=== PATIENT | male | born 1965 | race Caucasian/White ===

== ENCOUNTER 2020-09-21 21:21 | Emergency (ER) | payer SELFPAY ==
[~2020-09-21] VITALS: Ht 172.7 cm; Wt 81.6 kg
[2020-09-21 21:24] VITALS: BP 165/110
--- NOTE | 2020-09-21 21:24 | NUR ---
PATIENT TAKEN TO ER BED 8
--- NOTE | 2020-09-21 21:30 | NUR ---
59 Y/O MALE BIBA FROM HOME C/O LEFT FOOT PAIN WITH CRAMPING X A FEW MONTHS. PT STATES FRIENDS CALLED EMS BECAUSE THEY THOUGHT PT WAS SEIZING. PT DENIES ANY SEIZURE ACTIVITY. ADMITS TO DRINKING ONE BEER TODAY. SKIN WARM AND MOIST TO THE TOUCH. PT DENIES ANY MEDICAL COMPLAINTS AND STATES HE DOES NOT WANT TO BE HERE. MEDHX: SEIZURE, ASTHMA
--- NOTE | 2020-09-21 21:31 | NUR ---
DR VIZCAINO AT BEDSIDE EXAMINING PATIENT
--- NOTE | 2020-09-21 21:42 | NUR ---
LAB AT BEDSIDE
[2020-09-21 22:07] LABS: BASOPHILS % (AUTO) 0.1 % (0.0-2.0); EOSINOPHILS % (AUTO) 0.1 % (0.0-4.0); HEMATOCRIT 29.6 % (36-52); HEMOGLOBIN 9.8 g/dL (12.0-18.0); LYMPHOCYTES # (AUTO) 0.6 K/uL (2.0-11.5); LYMPHOCYTES % (AUTO) 5.2 % (20.5-51.1); MEAN CORPUSCULAR HEMOGLOBIN 30 pg (27-31); MEAN CORPUSCULAR HGB CONC 33 g/dL (33-37); MEAN CORPUSCULAR VOLUME 90.8 fL (80-94); MONOCYTES # (AUTO) 0.9 K/uL (0.8-1.0); MONOCYTES % (AUTO) 7.6 % (1.7-9.3); NEUTROPHILS # (AUTO) 9.7 K/uL (1.8-7.7); PLATELET COUNT (AUTO) 365 K/uL (140-450); RED BLOOD CELL COUNT(AUTO) 3.26 MIL/uL (4.20-6.10); RED CELL DISTRIBUTION WIDTH 18.8 % (11.6-13.7); WHITE BLOOD COUNT (AUTO) 11.2 K/uL (4.8-10.8)
[2020-09-21 22:26] LABS: ANION GAP 23.4 (8-16); CREATININE 2.3 mg/dL (0.6-1.3); POTASSIUM 4.4 mmol/L (3.5-5.1)
--- NOTE | 2020-09-21 22:41 | NUR ---
PT LAYING IN SEMI FOWLERS POSITION. PT IS CALM. NO DISTRESS NOTED. BREATHING IS UNLABORED. PT IS STABLE.
[2020-09-21 23:20] VITALS: BP 162/99
--- NOTE | 2020-09-21 23:20 | NUR ---
Patient discharged with v/s stable. Written and verbal after care instructions given and explained. Patient verbalized understanding. Wheel Chair Assisted TO LOBBY All questions addressed prior to discharge. Advised to follow up with PMD.
--- NOTE | 2020-09-22 08:06 | NUR ---
CASE MANAGEMENT CONTACTED FOR HOMELESS SERVICES
--- NOTE | 2020-09-22 09:10 | NUR ---
NO RESPONSE FROM CASE MANAGEMENT. [employer]EARCH [employer]F CONTACTED AND PROVIDED PT WITH BUS PASS AND HOMELESS LUNCH.
--- NOTE | 2020-09-22 11:46 | NUR ---
PT REFUSING TO LEAVE. MACHINE BUNCH MAKER NOTIFIED AND PROVIDED PT WITH [employer] TO [facility].
--- NOTE | 2020-09-22 12:15 | NUR ---
[facility] REFUSING TO TAKE PT. STRAWHAT BLOCKING OPERATOR IVELISSE MADE AWARE AND WILL TAKE OVER.
== END 2020-09-21 23:20 | disposition home or self-care (01) ==
LOC: EDBD 21:21 → MED 21:21
DX: R25.2 Cramp and spasm (principal); J45.909 Unspecified asthma, uncomplicated
CPT/HCPCS: 36415; 80048; 82553; 85025; 99283